=== PATIENT | female | born 1980 | race Caucasian/White ===

== ENCOUNTER → 2021-03-16 | Day surgery (SDC) | payer OTHER ==
[~2021-03-16] MED LIST: HYDROCODON-ACE1 EAC4 PO
[2021-03-16 11:47] LABS: HEMOGLOBIN 14.6 gm/dl (12.3-15.3); RED BLOOD COUNT 4.73 M/UL (4.00-5.10); WHITE BLOOD COUNT 7.7 K/UL (4.5-11.0)
[2021-03-16 12:17] LABS: BUN/CREATININE RATIO 9 (0-10)
== END | disposition home or self-care (01) ==
LOC: OPSV2 10:00
PROVIDERS: Orthopaedic Surgery
DX: Z01.818 Encounter for other preprocedural examination (principal); M54.12 Radiculopathy, cervical region
CPT/HCPCS: 71046; 80048; 81001; 85027; 87081; 93005

== ENCOUNTER 2021-03-30 05:29 | Inpatient (IN) | payer OTHER ==
[~2021-03-30] VITALS: Ht 175.3 cm; Wt 65.8 kg
[2021-03-30 13:10] LABS: HEMOGLOBIN 12.6 gm/dl (12.3-15.3); RED BLOOD COUNT 4.05 M/UL (4.00-5.10); WHITE BLOOD COUNT 9.3 K/UL (4.5-11.0)
[2021-03-30 13:31] LABS: BUN/CREATININE RATIO 11 (0-10)
--- NOTE | 2021-03-30 16:40 | NUR ---
ASPEN COLLAR PLACED ON PATIENT AT PATIENTS REQUEST.
[2021-03-31 05:04] LABS: HEMOGLOBIN 11.5 gm/dl (12.3-15.3); RED BLOOD COUNT 3.77 M/UL (4.00-5.10)
[2021-03-31 05:06] LABS: BUN/CREATININE RATIO 10 (0-10)
--- NOTE | 2021-03-31 12:04 | NUR ---
0834 PT VOIDED X1 AFTER POTTER REMOVAL.
--- NOTE | 2021-03-31 12:05 | NUR ---
1000 HALI DRAIN REMOVED FROM SURGICAL SITE. PT TOLERATED WELL. VERY MINIMAL BLEEDING. BANDAGE APPLIED.
--- NOTE | 2021-03-31 13:18 | NUR ---
PER MD ORDER, PT DISCHARGED HOME WITH BOYFRIEND. IV REMOVED, TOLERATED WELL. POTTER AND HALI DRAIN ALREADY REMOVED. PT GIVEN DISCHARGE INSTRUCTIONS AND TEACHING REGAURDING PROCEDURE, FOLLOW-UP CARE AND FOLLOW-UP APPINTMENTS. D/C PACKET GIVEN TO PATIENT. PATIENT AWARE THAT MEDICATION IS TO BE SENT ELECTRONICALLY BY DR. PARKER. PATIENT REFUSED TO GO DOWN IN WHEELCHAIR SO I WALKED HER DOWN TO HER TRUCK. PT TOLERATED WELL AND WAS WEARING HER ASPEN COLLAR ORDERED.
== END 2021-03-31 13:07 | disposition home or self-care (01) | DRG 472 ==
LOC: OR 05:29 → CCU 15:08 → OR 15:09 → CCU 15:09
PROVIDERS: ADMIT Orthopaedic Surgery
PROC: 4A11X4G Monitoring of Peripheral Nervous Electrical Activity, Intraoperative, External Approach (ICD-10-PCS; 2021-03-30)
PROC: 0RG20A0 Fusion of 2 or more Cervical Vertebral Joints with Interbody Fusion Device, Anterior Approach, Anterior Column, Open Approach (ICD-10-PCS; principal; 2021-03-30 07:30)
PROC: 0RT30ZZ Resection of Cervical Vertebral Disc, Open Approach (ICD-10-PCS; 2021-03-30 07:30)
DX: M48.02 Spinal stenosis, cervical region (principal); M50.00 Cervical disc disorder with myelopathy, unspecified cervical region; M54.12 Radiculopathy, cervical region; F31.9 Bipolar disorder, unspecified; Z90.49 Acquired absence of other specified parts of digestive tract; Z88.0 Allergy status to penicillin; Z79.899 Other long term (current) drug therapy
CPT/HCPCS: 36415; 72040; 72050; 76000; 80048; 85025; 85027; 85610; 85730; 86850; 86900; 86901; 97161; 97166; 97535; C1713; C1762; J0690; J1040; J1100; J1170; J2001; J2250; J2405; J2704; J2710; J3010; J3370; J7050; J7120

== ENCOUNTER 2021-04-05 15:51 | Observation (INO) | payer OTHER ==
[~2021-04-05] VITALS: Ht 175.3 cm; Wt 65.3 kg
[2021-04-05 16:42] LABS: RED BLOOD COUNT 5.07 M/UL (4.00-5.10); WHITE BLOOD COUNT 8.9 K/UL (4.5-11.0)
[2021-04-05 16:59] LABS: HEMOGLOBIN 15.2 gm/dl (12.3-15.3)
[2021-04-05 17:09] LABS: BUN/CREATININE RATIO 12 (0-10)
[2021-04-05] MEDS ORDERED: ROXICODONE TAB 55 MG PO (20:13)
--- NOTE | 2021-04-06 17:06 | NUR ---
PATIENT STATES THAT SHE HAD SEVERAL EPISODES OF VOMITING AFTER TAKING MIRALAX THIS AM, AND DOES NOT BELIEVE SHE KEPT ANY OF IT DOWN. NEW ORDER FOR ONE TIME DOSE NOTED.
[2021-04-07 04:44] LABS: HEMOGLOBIN 13.3 gm/dl (12.3-15.3); WHITE BLOOD COUNT 7.5 K/UL (4.5-11.0)
[2021-04-07 04:48] LABS: RED BLOOD COUNT 4.32 M/UL (4.00-5.10)
[2021-04-07 05:14] LABS: BUN/CREATININE RATIO 16 (0-10)
[2021-04-07] MEDS ORDERED: LIDOCAINE PAIN1 EACH TOP (11:24)
[2021-04-07] MEDS ORDERED: NICOTINE PATCH1 EAC1 TOP (11:24)
[2021-04-07] MEDS ORDERED: MYCOSTATIN100000 UTS PO (11:24)
== END 2021-04-07 10:25 | disposition home or self-care (01) ==
LOC: ER1 15:51 → CDU 18:30 → MED SURG 4 20:20
PROVIDERS: Emergency Medicine; Orthopaedic Surgery; ADMIT Internal Medicine Infectious Disease
DX: M54.12 Radiculopathy, cervical region (principal); F17.210 Nicotine dependence, cigarettes, uncomplicated; Z20.822 Contact with and (suspected) exposure to COVID-19; Z88.0 Allergy status to penicillin; Z98.1 Arthrodesis status
CPT/HCPCS: 36415; 70450; 70491; 80048; 80053; 83605; 84703; 85025; 85652; 86140; 87040; 96374; 96375; 96376; 99284; G0378; J1885; J2270; J2405; J2550; J7030; Q9967; U0002

== ENCOUNTER → 2021-10-04 | Outpatient (CLI) | payer OTHER ==
[~2021-10-04] MED LIST changes: +LIDOCAINE PAIN1 EACH TOP; +MYCOSTATIN100000 UTS PO; +NICOTINE PATCH1 EAC1 TOP; +ROXICODONE TAB 55 MG PO
== END ==
LOC: KOH-I 09:09
DX: M25.572 Pain in left ankle and joints of left foot (principal); M25.872 Other specified joint disorders, left ankle and foot
CPT/HCPCS: 73590; 73610

== ENCOUNTER → 2021-10-26 | Outpatient (CLI) | payer OTHER | LOC: EMI 09:46 | DX: M89.8X6 Other specified disorders of bone, lower leg (principal); S99.912A Unspecified injury of left ankle, initial encounter; R93.6 Abnormal findings on diagnostic imaging of limbs | CPT/HCPCS: 73720; A9577 ==

== ENCOUNTER 2022-01-17 11:31 | Emergency (ER) | payer OTHER ==
[2022-01-17] MEDS ORDERED: CYCLOBENZAPRINE10 MG PO (17:43)
== END 2022-01-17 18:30 | disposition home or self-care (01) ==
LOC: ER1 11:31
DX: M54.2 Cervicalgia (principal); G89.29 Other chronic pain
CPT/HCPCS: 72125; 99283